=== PATIENT | male | born 1995 | race African-American/Black ===

== ENCOUNTER 2016-08-15 17:55 | Emergency (ER) | payer MEDICAID ==
[~2016-08-15] VITALS: Ht 185.4 cm; Wt 87.0 kg
[2016-08-15] MEDS ORDERED: SODIUM CHLORIDE 0.9% 1,000 ML IV ONE (18:26)
[2016-08-15] MEDS ORDERED: LORAZEPAM 2MG/ML CPJ IV ONE (18:30)
[2016-08-15 19:10] LABS: CLARITY URINE CLEAR (CLEAR); COLOR URINE YELLOW (YELLOW); GLUCOSE URINE NEGATIVE (NEGATIVE); KETONES URINE TRACE (NEGATIVE); LEUKOCYTE ESTERASE URINE NEGATIVE (NEGATIVE); NITRITE URINE NEGATIVE (NEGATIVE); OCCULT BLOOD URINE NEGATIVE (NEGATIVE); PROTEIN URINE NEGATIVE (NEGATIVE); SPECIFIC GRAVITY URINE 1.034 (1.005-1.030)
[2016-08-15 19:26] LABS: *AMPHETAMINES SCREEN URINE NEGATIVE (NEGATIVE); *BARBITURATES SCREEN URINE NEGATIVE (NEGATIVE); *BENZODIAZEPINES SCREEN URINE PRESUMTIVE POSITIVE (NEGATIVE); *COCAINE SCREEN URINE NEGATIVE (NEGATIVE); CANNABINOID URINE SCREEN PRESUMTIVE POSITIVE (NEGATIVE); METHADONE URINE SCREEN NEGATIVE (NEGATIVE); OPIATES URINE SCREEN NEGATIVE (NEGATIVE); PHENCYCLIDINE URINE SCREEN NEGATIVE (NEGATIVE)
[2016-08-15 19:33] LABS: BASOPHILS % 0.3 % (0.0-2.0); EOSINOPHILS % 3.1 % (0.0-5.0); HEMATOCRIT. 39.6 % (42.0-52.0); LYMPHOCYTES % 31.7 % (20.0-50.0); MEAN CORPUSCULAR HEMOGLOBIN 29.8 pg (28.0-32.0); MEAN CORPUSCULAR VOLUME 90.8 fL (80.0-94.0); MEAN PLATELET VOLUME 11.2 fl (7.4-10.4); MONOCYTES % 9.6 % (2.0-8.0); NEUTROPHILS % 55.3 % (40.0-76.0); PLATELET 112 x1000/uL (130-400); RED BLOOD CELL COUNT 4.36 mill/uL (4.7-6.1)
[2016-08-15 19:44] LABS: AMMONIA 49 uMol/L (<32)
[2016-08-15 19:47] LABS: CARBON DIOXIDE 25 mEq/L (21-32); CHLORIDE 111 mEq/L (98-107); ETHANOL BLOOD < 10 mg/dL
[2016-08-15 19:55] LABS: CREATINE KINASE 216 IU/L (39-308)
[2016-08-15] MEDS ORDERED: LORAZEPAM 2MG/ML CPJ IV NR (21:45)
[2016-08-15] MEDS ORDERED: LACTULOSE 20G/30ML UDC PO NR (21:45)
[2016-08-15] MEDS ORDERED: DIPHENHYDRAMINE 50MG/ML VIAL IV NR (21:46)
[2016-08-15] MEDS ORDERED: HALOPERIDOL LACTATE 5MG/ML VIAL IM NR (22:00)
[2016-08-16] MEDS ORDERED: LORAZEPAM 2MG/ML CPJ IV ONE (08:15)
[2016-08-16] MEDS ORDERED: OLANZAPINE 10 MG/VIAL IM ONE ×3 (08:15→17:45)
[2016-08-16] MEDS ORDERED: LACTULOSE 20G/30ML UDC PO ONE (11:30)
[2016-08-16 12:34] LABS: AMMONIA 42 uMol/L (<32)
[2016-08-16] MEDS ORDERED: LORAZEPAM 2MG/ML CPJ IM ONE (17:45)
[2016-08-17] MEDS ORDERED: LORAZEPAM 2MG/ML CPJ IV ONE ×3 (07:15→09:30)
[2016-08-17] MEDS ORDERED: OLANZAPINE 10 MG/VIAL IM ONE (08:00)
[2016-08-17 08:21] LABS: AMMONIA 33 uMol/L (<32)
[2016-08-17] MEDS ORDERED: HALOPERIDOL LACTATE 5MG/ML VIAL IM ONE (09:45)
[2016-08-17] MEDS ORDERED: DIPHENHYDRAMINE 50MG/ML VIAL IV ONE (09:45)
[2016-08-17 11:34] VITALS: BP 136/86
== END 2016-08-17 16:23 | disposition home or self-care (01) ==
LOC: ER 18:18
DX: S60.511A Abrasion of right hand, initial encounter (principal); F41.9 Anxiety disorder, unspecified; F31.9 Bipolar disorder, unspecified; F23 Brief psychotic disorder; R51 Headache; F12.10 Cannabis abuse, uncomplicated; W13.4XXA Fall from, out of or through window, initial encounter; Y93.89 Activity, other specified; Y92.89 Other specified places as the place of occurrence of the external cause; Y99.8 Other external cause status; Z88.8 Allergy status to other drugs, medicaments and biological substances
CPT/HCPCS: 36415; 70450; 71010; 72125; 73130; 80053; 80305; 80307; 80329; 81003; 82140; 82550; 83605; 83690; 84443; 85025; 96372; 96374; 96375; 96376; 99285; G0482; J1200; J1630; J2060; J3490; Z7610; J7030

== ENCOUNTER 2021-08-16 21:22 | Emergency (ER) | payer MEDICAID ==
[~2021-08-16] VITALS: Ht 182.9 cm; Wt 100.0 kg
[2021-08-16] MEDS ORDERED: OLANZAPINE 10 MG/VIAL IM ONE (22:30)
[2021-08-16 23:07] LABS: BASOPHILS % 0.3 % (0.0-2.0); EOSINOPHILS % 0.4 % (0.0-5.0); HEMATOCRIT. 41.2 % (42.0-52.0); HEMOGLOBIN. 13.3 g/dL (14.0-18.0); MEAN CORPUSCULAR HEMOGLOBIN 29.6 pg (28.0-32.0); MEAN CORPUSCULAR VOLUME 91.8 fL (80.0-94.0); MEAN PLATELET VOLUME 11.8 fl (7.4-10.4); MONOCYTES % 9.3 % (2.0-8.0); PLATELET 133 x1000/uL (130-400); RED BLOOD CELL COUNT 4.48 mill/uL (4.7-6.1); RED CELL DISTRIBUTION WIDTH 13.8 % (11.6-14.6)
[2021-08-16 23:12] LABS: CHLORIDE 115 mEq/L (98-107)
[2021-08-16 23:22] LABS: ETHANOL BLOOD < 10 mg/dL
[2021-08-17] MEDS ORDERED: OLANZAPINE 10 MG/VIAL IM ONE (03:45)
[2021-08-17] MEDS ORDERED: OLANZAPINE 10 MG/VIAL IM NR (04:00)
[2021-08-17 04:11] LABS: *AMPHETAMINES SCREEN URINE NEGATIVE (NEGATIVE); *BARBITURATES SCREEN URINE NEGATIVE (NEGATIVE); *BENZODIAZEPINES SCREEN URINE PRESUMTIVE POSITIVE (NEGATIVE); *COCAINE SCREEN URINE NEGATIVE (NEGATIVE); CANNABINOID URINE SCREEN PRESUMTIVE POSITIVE (NEGATIVE); METHADONE URINE SCREEN NEGATIVE (NEGATIVE); OPIATES URINE SCREEN NEGATIVE (NEGATIVE); PHENCYCLIDINE URINE SCREEN NEGATIVE (NEGATIVE)
[2021-08-17] MEDS ORDERED: HALOPERIDOL LACTATE 5MG/ML VIAL IM ONE ×3 (04:45→12:45)
[2021-08-17] MEDS ORDERED: MIDAZOLAM HCL 2 MG/2 ML VIAL IV ONE ×2 (10:15→12:45)
[2021-08-17] MEDS: OLANZAPINE 5MG TABLET ODT PO SCH ×2 (13:57→21:00)
[2021-08-17] MEDS ORDERED: NICOTINE 14MG PATCH TD ONE (14:00)
[2021-08-17] MEDS: TOPIRAMATE 25MG TABLET PO SCH ×2 (21:00→23:32)
[2021-08-17] MEDS ORDERED: OLANZAPINE 5MG TABLET ODT PO ONE (23:30)
[2021-08-18] MEDS ORDERED: ZIPRASIDONE MESYLATE 20MG/VIAL IM ONE
[2021-08-18] MEDS ORDERED: MIDAZOLAM HCL 2 MG/2 ML VIAL IM ONE (05:45)
[2021-08-18] MEDS ORDERED: LORAZEPAM 1MG TABLET PO ONE (07:30)
[2021-08-18] MEDS: OLANZAPINE 10MG TABLET PO SCH ×2 (07:38→09:00)
[2021-08-18] MEDS: OLANZAPINE 5MG TABLET ODT PO SCH ×2 (09:00→20:51)
[2021-08-18] MEDS ORDERED: LORAZEPAM 1MG TABLET PO SCH (11:45)
[2021-08-18] MEDS ORDERED: DIPHENHYDRAMINE 25MG CAPSULE PO SCH (11:45)
[2021-08-18] MEDS: TOPIRAMATE 25MG TABLET PO SCH (20:50)
[2021-08-19] MEDS ORDERED: OLANZAPINE 5MG TABLET ODT PO ONE (04:45)
[2021-08-19] MEDS ORDERED: MIDAZOLAM HCL 2 MG/2 ML VIAL IM STA (06:04)
[2021-08-19] MEDS ORDERED: DIPHENHYDRAMINE 50MG/ML VIAL IM STA (06:04)
[2021-08-19] MEDS ORDERED: OLANZAPINE 10 MG/VIAL IM ONE (06:15)
[2021-08-19] MEDS: OLANZAPINE 5MG TABLET ODT PO SCH ×2 (08:20→21:33)
[2021-08-19] MEDS: TOPIRAMATE 25MG TABLET PO SCH ×2 (08:27→21:33)
[2021-08-19] MEDS ORDERED: LORAZEPAM 1MG TABLET PO NR (09:15)
[2021-08-19] MEDS ORDERED: DIPHENHYDRAMINE 50MG CAPSULE PO NR (09:15)
[2021-08-19] MEDS ORDERED: HALOPERIDOL 5MG TABLET PO NR (09:15)
[2021-08-19] MEDS ORDERED: TEMAZEPAM 15MG CAPSULE PO PRN (21:00)
[2021-08-20] MEDS ORDERED: DIPHENHYDRAMINE 50MG CAPSULE PO NR (01:15)
[2021-08-20] MEDS: TOPIRAMATE 25MG TABLET PO SCH ×2 (08:55→21:00)
[2021-08-20] MEDS: OLANZAPINE 5MG TABLET ODT PO SCH ×2 (08:55→21:00)
[2021-08-20 21:30] VITALS: BP 151/71
== END 2021-08-20 22:15 ==
LOC: ER 21:22
DX: F23 Brief psychotic disorder (principal); Z20.822 Contact with and (suspected) exposure to COVID-19; Z86.59 Personal history of other mental and behavioral disorders
CPT/HCPCS: 36415; 70450; 80053; 80307; 80320; 80329; 85025; 87426; 96372; 96374; 96376; 99285; C9803; J1200; J1630; J2250; J3486; J3490; Q0163; U0003; U0005; G0480

== ENCOUNTER 2021-10-22 17:29 | Emergency (ER) | payer MEDICAID ==
[~2021-10-22] VITALS: Ht 185.4 cm; Wt 98.0 kg
[2021-10-22 17:37] VITALS: BP 120/63
== END 2021-10-22 20:16 | disposition left against medical advice (07) ==
LOC: ER 17:29
DX: Z53.21 Procedure and treatment not carried out due to patient leaving prior to being seen by health care provider (principal)

== ENCOUNTER 2022-03-23 11:13 | Emergency (ER) | payer MEDICAID ==
[~2022-03-23] VITALS: Ht 185.4 cm; Wt 104.0 kg
[2022-03-23] MEDS ORDERED: OLANZAPINE 10 MG/VIAL IM STA (11:18)
[2022-03-23 13:01] LABS: BASOPHILS % 0.3 % (0.0-2.0); EOSINOPHILS % 3.6 % (0.0-5.0); HEMATOCRIT. 39.1 % (42.0-52.0); HEMOGLOBIN. 13.3 g/dL (14.0-18.0); LYMPHOCYTES % 34.8 % (20.0-50.0); MEAN CORPUSCULAR HEMOGLOBIN 31.5 pg (28.0-32.0); MEAN CORPUSCULAR VOLUME 92.8 fL (80.0-94.0); MEAN PLATELET VOLUME 10.8 fl (7.4-10.4); MONOCYTES % 7.2 % (2.0-8.0); NEUTROPHILS % 54.1 % (40.0-76.0); PLATELET 134 x1000/uL (130-400); RED BLOOD CELL COUNT 4.21 mill/uL (4.7-6.1); RED CELL DISTRIBUTION WIDTH 13.3 % (11.6-14.6)
[2022-03-23 13:08] LABS: CHLORIDE 109 mEq/L (98-107)
[2022-03-23 13:31] LABS: CREATINE KINASE 2702 IU/L (39-308); ETHANOL BLOOD < 10 mg/dL
[2022-03-23] MEDS ORDERED: OLANZAPINE 10 MG/VIAL IM NR (14:30)
[2022-03-23] MEDS ORDERED: HALOPERIDOL LACTATE 5MG/ML VIAL IM ONE (15:15)
[2022-03-23] MEDS ORDERED: LORAZEPAM 2MG/ML CPJ IM ONE (15:15)
[2022-03-23] MEDS ORDERED: DIPHENHYDRAMINE 50MG/ML VIAL IM ONE (15:15)
[2022-03-23 16:24] LABS: CLARITY URINE CLEAR (CLEAR); COLOR URINE YELLOW (YELLOW); KETONES URINE 2+ (NEGATIVE); LEUKOCYTE ESTERASE URINE NEGATIVE (NEGATIVE); NITRITE URINE NEGATIVE (NEGATIVE); OCCULT BLOOD URINE NEGATIVE (NEGATIVE); PH URINE 6.5 (4.5-8.0); PROTEIN URINE TRACE (NEGATIVE); SPECIFIC GRAVITY URINE 1.032 (1.005-1.030)
[2022-03-23 17:22] LABS: *AMPHETAMINES SCREEN URINE NEGATIVE (NEGATIVE); *BARBITURATES SCREEN URINE NEGATIVE (NEGATIVE); *BENZODIAZEPINES SCREEN URINE NEGATIVE (NEGATIVE); *COCAINE SCREEN URINE NEGATIVE (NEGATIVE); CANNABINOID URINE SCREEN PRESUMTIVE POSITIVE (NEGATIVE); METHADONE URINE SCREEN NEGATIVE (NEGATIVE); OPIATES URINE SCREEN NEGATIVE (NEGATIVE); PHENCYCLIDINE URINE SCREEN NEGATIVE (NEGATIVE)
[2022-03-23] MEDS ORDERED: SODIUM CHLORIDE 0.9% 1,000 ML IV ONE ×3 (19:00→20:45)
[2022-03-23 20:42] LABS: CREATINE KINASE 2900 IU/L (39-308)
[2022-03-23 23:04] LABS: CREATINE KINASE 2802 IU/L (39-308)
[2022-03-24] MEDS ORDERED: LORAZEPAM 2MG/ML CPJ IV ONE (03:00)
[2022-03-24] MEDS ORDERED: DIPHENHYDRAMINE 50MG/ML VIAL IV ONE (03:00)
[2022-03-24] MEDS ORDERED: HALOPERIDOL LACTATE 5MG/ML VIAL IM ONE (03:00)
[2022-03-24 09:30] VITALS: BP 136/72
== END 2022-03-24 10:15 | disposition left against medical advice (07) ==
LOC: ER 11:16
DX: F91.8 Other conduct disorders (principal); F20.9 Schizophrenia, unspecified; F41.9 Anxiety disorder, unspecified; D64.9 Anemia, unspecified; F12.10 Cannabis abuse, uncomplicated; R94.4 Abnormal results of kidney function studies; Z20.822 Contact with and (suspected) exposure to COVID-19; Z78.1 Physical restraint status; Z88.8 Allergy status to other drugs, medicaments and biological substances
CPT/HCPCS: 36415; 80053; 80305; 80307; 80320; 80329; 81003; 82140; 82550; 83690; 84443; 85025; 87426; 93005; 96361; 96372; 96374; 96375; 99291; C9803; J1200; J1630; J2060; J3490; J7030; Z7610; G0480

== ENCOUNTER 2022-09-23 06:37 | Emergency (ER) | payer MEDICAID ==
[~2022-09-23] VITALS: Ht 185.4 cm; Wt 95.0 kg
[2022-09-23 06:43] VITALS: BP 117/75; PULSE 69; RESP 16; TEMP 98.4; O2SAT 99
== END 2022-09-23 09:10 | disposition left against medical advice (07) ==
LOC: ER 06:39
DX: Z53.21 Procedure and treatment not carried out due to patient leaving prior to being seen by health care provider (principal)
CPT/HCPCS: 99281